=== PATIENT | male | born 1955 | race African-American/Black ===

== ENCOUNTER 2020-07-27 09:21 | Day surgery (SDC) | payer OTHER, SELFPAY ==
--- NOTE | 2020-07-26 14:21 | HO.ANESPROP2 ---
Documented by User: [email or web address] Amaral 07/26/20 14:22 HPI - Anesthesia Eval Consult details Narrative: 65yo M for Colonoscopy [facility] Past Medical History Medical History DJD (degenerative joint disease) Elevated PSA GERD (gastroesophageal reflux disease) HTN (hypertension) Hypothyroid Surgical History Surgical History H/O colonoscopy Hx of tonsillectomy Social History Social History Smoking Status: Never smoker Use of substances other than those prescribed or required for medical reasons: No Have you been hit, kicked, punched, or otherwise hurt by someone within the past year? If so, by whom?: No Advance Directives: No Advance Directives Information Provided: No (unknown) Advance Directives on File: No Recently lost weight without trying: No Meds Allergies Allergy/AdvReac Type Severity Reaction Status Date / Time lisinopril Allergy Unknown Verified 07/26/20 14:14 SODIUM PENATHOL Allergy Unknown RAGE Uncoded 06/07/20 18:26 Home Medications Medication Instructions Recorded Confirmed Type amlodipine 2.5 mg PO DAILY 07/26/20 07/26/20 History levothyroxine 88 mcg PO DAILY 07/26/20 07/26/20 History metoprolol succinate 25 mg PO DAILY 07/26/20 07/27/20 History Exam Exam Date and Time: July 26, 2020 1421 Assessment and Plan Assessment Anesthesia Assessment: Chart Reviewed Documented by User: Oliva Bush 07/27/20 10:44 [facility] Past Medical History Medical History DJD (degenerative joint disease) Elevated PSA GERD (gastroesophageal reflux disease) HTN (hypertension) Hypothyroid Family History Family history of problems with anesthesia: No Surgical History Surgical History H/O colonoscopy Hx of tonsillectomy History of Problems with Anesthesia: Yes (Sodium penthotal- could not hold information in- happened minreva-op ( truth serum ) ) Social History Social History Smoking Status: Never smoker Use of substances other than those prescribed or required for medical reasons: No Have you been hit, kicked, punched, or otherwise hurt by someone within the past year? If so, by whom?: No Advance Directives: No Advance Directives Information Provided: No (unknown) Advance Directives on File: No Recently lost weight without trying: No Meds Allergies Allergy/AdvReac Type Severity Reaction Status Date / Time lisinopril Allergy Unknown Verified 07/26/20 14:14 SODIUM PENATHOL Allergy Unknown RAGE Uncoded 06/07/20 18:26 Home Medications Medication Instructions Recorded Confirmed Type amlodipine 2.5 mg PO DAILY 07/26/20 07/26/20 History levothyroxine 88 mcg PO DAILY 07/26/20 07/26/20 History metoprolol succinate 25 mg PO DAILY 07/26/20 07/27/20 History Exam Height,Weight and Vital Signs: Vital Signs Temp Pulse Resp BP Pulse Ox 07/27/20 09:37 98.1 F 76 16 141/93 H 98 Airway Mallampati Class: II TM Dist: >3cm Neck ROM: Full Loose/Missing/Broken Teeth: Yes (Edentulous) Heart: RRR Lungs: CTAB Assessment and Plan Assessment Anesthesia Assessment: Anesthesia Plan Discussed and Chart Reviewed Final Anesthetic Review NPO: Yes ASA Class: II Final Preanesthetic Review: No Changes in Pt Med Stat, Meds/Allgs Chart Reviewed, Consent Obtained/Reviewed and Anes Risks/Benef Reviewed Patient Risk: Low Anesthetic Plan Anesthetic Plan: MAC: Disposition: Standard PACU
[2020-07-27 09:37] VITALS: BP 141/93; PULSE 76; RESP 16; TEMP 36.7; O2SAT 98; BMI 45.6
[2020-07-27] MEDS: Lactated Ringers 1,000 ML 100 ML IVCONT (09:47)
--- NOTE | 2020-07-27 10:48 | MHC.SHP ---
Pre-Procedural Eval Section A The patient is an INPATIENT: No Changes since office visit: No Cold of Flu in the past 2 weeks, No New Medical Problems, No Changes in Medication and No Patient answered all questions The History & Physical has been completed within 30 days and I have reviewed it.: Yes Section B Chief Complaint: Screening Allergies: Allergies Allergy/AdvReac Type Severity Reaction Status Date / Time lisinopril Allergy Unknown Verified 07/26/20 14:14 SODIUM PENATHOL Allergy Unknown RAGE Uncoded 06/07/20 18:26 Plan Patient has been examined and remains a candidate for the planned procedure
--- NOTE | 2020-07-27 11:17 | PM.OP ---
Brief Operative Note Date of procedure: 07/27/20 Pre-op diagnosis: screening Post-op diagnosis: same (colon polyps) Procedure: colonoscopy Surgeon: Luis A Dove Estimated blood loss (mL): 3 Pathology: other (polyps x2) Condition: stable Disposition: PACU
[2020-07-27 11:18] VITALS: BP 77/50; PULSE 80; RESP 14; TEMP 36.3; O2SAT 98
[2020-07-27 11:25] VITALS: BP 81/48; PULSE 79; RESP 14; O2SAT 97
[2020-07-27 11:33] VITALS: BP 92/53; PULSE 74; RESP 16; O2SAT 98
--- NOTE | 2020-07-27 11:35 | OP_ITS ---
SURGEON: Luis A Dove MD INDICATIONS: Colon cancer screening and prior history of colon polyps. PREOPERATIVE DIAGNOSIS: POSTOPERATIVE DIAGNOSIS: PROCEDURE PERFORMED: Colonoscopy to the terminal ileum with biopsy. ESTIMATED BLOOD LOSS: COMPLICATIONS: ANESTHESIA: ASSISTANTS: SPECIMENS: MEDICATIONS: Monitored anesthesia care. DESCRIPTION OF PROCEDURE: History and physical performed. The risks and benefits of the procedure were explained to the patient. Informed consent was obtained. The patient was placed in the left lateral decubitus position. A digital rectal exam was performed and was found to be normal. The Olympus pediatric video colonoscope was introduced into the rectum and advanced to the cecum without difficulty. The cecum was identified by transillumination, palpation, and identification of ileocecal valve. Examination was performed and the scope was removed. He tolerated the procedure well and was taken to recovery area in stable condition. FINDINGS: The terminal ileum was normal. The visualized colonic mucosa was within normal limits without evidence of masses or ulcers. The quality of the prep was good. Two polyps were identified, both measured less than 5 mm. One was located at the cecum, one was located at 40 cm, both were removed with biopsy forceps. No other polyps were identified. Retroflexed examination showed internal hemorrhoids. IMPRESSION: Colon polyps. RECOMMENDATION: Follow up the biopsy results. MD KENZIE Maria/AIRAM / [id number]
[2020-07-27 11:48] VITALS: BP 130/92; PULSE 60; RESP 16; O2SAT 98
[2020-07-27 12:02] VITALS: BP 146/95; PULSE 70; RESP 18; TEMP 36.2; O2SAT 98
--- NOTE | 2020-07-27 12:31 | HO.POSTANES ---
Post Anesthesia Evaluation Post Anesthesia Evaluation Vital Signs: Vital Signs Temp Pulse Resp BP Pulse Ox 07/27/20 12:02 97.1 F 70 18 146/95 H 98 07/27/20 11:48 60 16 130/92 H 98 07/27/20 11:33 74 16 92/53 L 98 07/27/20 11:25 79 14 81/48 L 97 07/27/20 11:18 97.4 F 80 14 77/50 L 98 07/27/20 09:37 98.1 F 76 16 141/93 H 98 Anesthesia: Monitored (TIVA) Mental Status: Awake Pain Control: Satisfactory Nausea/Vomiting: None Hydration: Adequate Anesthesia-Related Issues: No Anes. Related Issues
== END 2020-07-27 13:15 | disposition home or self-care (01) ==
PROVIDERS: PCP Internal Medicine; Visit Provider Internal Medicine Gastroenterology
PROC: 0DJD8ZZ Inspection of Lower Intestinal Tract, Via Natural or Artificial Opening Endoscopic (ICD-10-PCS; CPT 45378; principal; 2020-07-27 10:40)
DX: Z12.11 Encounter for screening for malignant neoplasm of colon (principal); Z86.010 Personal history of colon polyps; D12.0 Benign neoplasm of cecum; D12.5 Benign neoplasm of sigmoid colon; K64.8 Other hemorrhoids; K21.9 Gastro-esophageal reflux disease without esophagitis; I10 Essential (primary) hypertension; E03.9 Hypothyroidism, unspecified; R97.20 Elevated prostate specific antigen [PSA]; Z79.899 Other long term (current) drug therapy; Z88.8 Allergy status to other drugs, medicaments and biological substances
CPT/HCPCS: 45380; 88305